=== PATIENT | male | born 1945 | race Caucasian/White ===

== ENCOUNTER 2016-12-11 06:38 | Day surgery (SDC) | payer BC ==
[2016-12-07 11:00] LABS: Basophils # (auto) 0 uL; Basophils % (auto) 0.3 % (0.0-2.0); Eosinophils # (auto) 0.1 uL; Hematocrit 44.5 % (41.0-53.0); Lymphocytes # (auto) 1.2 uL; Lymphocytes % (auto) 20.6 % (10.0-50.0); Mean Corpuscular Hgb Conc. 33.7 g/dL (32.0-36.0); Mean Corpuscular Volume 98.2 fL (80.0-100.0); Monocytes # (auto) 0.3 uL; Monocytes % (auto) 4.8 % (0.0-12.0); Neutrophils # (auto) 4.1 uL; Neutrophils % (auto) 72.3 % (37.0-80.0); Platelet Count (auto) 206 10^3/uL (140-450); Red Cell Distribution Width 13.7 % (11.6-16.0); White Blood Cell 5.6 10^3/uL (4.4-10.8)
[2016-12-07 11:12] LABS: Urine Bilirubin Negative (Negative); Urine Blood Negative /uL (Negative); Urine Color Yellow (Yellow); Urine Glucose Normal (Normal); Urine Ketone Negative (Negative); Urine Mucus FEW (None Seen); Urine Nitrite Negative (Negative); Urine RBC 1 /hpf (0 - 3); Urine Squamous Epithelial Cell FEW /hpf (<5); Urine Urobilinogen Normal (Negative); Urine pH 5.5 (5.0-8.0)
[2016-12-07 11:15] LABS: INR 0.99 (0.9-1.15); Partial Thromboplastin Time 26.4 sec (22.64-33.71); Prothrombin Time 10.8 sec (9.37-12.3)
[2016-12-07 11:22] LABS: Albumin 3.9 g/dL (3.4-5.0); BUN/Creatinine Ratio 13.8; Bilirubin, Total 0.7 mg/dL (0.2-1.0); Calcium 8.9 mg/dL (8.5-10.1); Potassium 4.3 mmol/L (3.5-5.1); Total Protein 7.3 g/dL (6.4-8.2)
[~2016-12-11] VITALS: Ht 175.3 cm; Wt 112.5 kg
[~2016-12-11 06:38] MED LIST: ASPI-231 PO; CALCTAB78 PO; CHOL200031 PO; LACTCAP OR; LOSA50TA6 PO; PANT40TA2 PO; VITA400T4 PO; VITACAP OR
[2016-12-11] MEDS ORDERED: ceFAZolin 1GM/50ML D5W 50 ML IV ONE (08:06)
[2016-12-11] MEDS ORDERED: LIDOCAINE 1% HCL (LOCAL ANESTH.) INJ 20ML MDV ONE (08:20)
[2016-12-11] MEDS ORDERED: PROPOFOL 10 MG/ML 20 ML IV ONE (08:41)
[2016-12-11] MEDS ORDERED: fentaNYL CITRATE 100 MCG/2 ML VL ONE (08:41)
[2016-12-11] MEDS ORDERED: MIDAZOLAM HCL 1MG/1ML-2 ML VIAL ONE (08:41)
[2016-12-11] MEDS ORDERED: ONDANSETRON HCL 4 MG/2 ML VIAL IV ONE (09:30)
[2016-12-11] MEDS ORDERED: hydrALAZINE HCL 20 MG/ML VL IV PRN (09:30)
[2016-12-11] MEDS ORDERED: ePHEDrine SULFATE 50 MG/ML AMP IV PRN (09:30)
[2016-12-11 09:50] VITALS: BP 120/76
[2016-12-11] MEDS ORDERED: fentaNYL CITRATE 100 MCG/2 ML VL IV ONE (10:00)
== END 2016-12-11 09:55 | disposition home or self-care (01) ==
LOC: SUR 06:38
PROVIDERS: ATTEND Urology
DX: N50.89 Other specified disorders of the male genital organs (principal); E66.9 Obesity, unspecified; Z90.49 Acquired absence of other specified parts of digestive tract
CPT/HCPCS: 36415; 54060; 80053; 81001; 85025; 85610; 85730; 88304; J0690; J2001; J2250; J2704; J3010

== ENCOUNTER → 2017-02-21 | Outpatient (CLI) | payer BC | END | disposition home or self-care (01) | LOC: LAB 11:03 | PROVIDERS: ATTEND Urology | DX: L72.0 Epidermal cyst (principal); N52.9 Male erectile dysfunction, unspecified; E29.1 Testicular hypofunction; R97.20 Elevated prostate specific antigen [PSA] | CPT/HCPCS: 36415; 84153; 84403 ==